=== PATIENT | male | born 1930 | race Caucasian/White ===

== ENCOUNTER → 2017-03-27 16:00 | Outpatient (CLI) | payer MEDICARE, OTHER ==
[2016-07-19 14:08] VITALS: BMI 27.3
[~2017-03-27 16:00] MED LIST: BAYER CHEWABLE81 MG PO; BENADRYL25 MG PO; CELEXA20 MG PO; COUMADIN; DIGOXIN; GLUCOPHAGE500 MG PO; HCTZ25 MG PO; HYDROCODON-ACE1 EAC7 PO; HYZAAR 100-12.51 TAB PO; KEFLEX500 MG PO; LANOXIN125 MCG PO; LASIX40 MG PO; LISINOPRIL/HCTZ; LOPID600 MG PO; METFORMIN; POTASSIUM CHLO20 MEQ PO; PRAVACHOL20 MG; PREDNISONE50 MG PO; ULTRAM50 MG PO; VITAMIN D; VITAMIN D31000 UNI2 PO; VOLTAREN75 MG PO
== END | disposition home or self-care (01) ==
LOC: D.CT 16:00
DX: M79.602 Pain in left arm (principal)

== ENCOUNTER 2017-05-24 06:42 | Emergency (ER) | payer MEDICARE, OTHER ==
[2016-07-19 14:08] VITALS: BMI 27.3
[2017-05-24 07:40] LABS: BASOPHILS 0.2 % (0-2); EOSINOPHILS 1.3 % (0-7); HEMATOCRIT 38.9 % (42.0-54.0); HEMOGLOBIN 12.4 g/dL (13.5-17.5); MCH 28.8 pg (26.0-34.0); MCHC 31.9 g/dL (31.0-37.0); MCV 90.5 fL (80.0-100.0); MEAN PLATELET VOLUME 10.3 fL (7.4-10.4); MONOCYTES 13.2 % (2-11); NEUTROPHILS 69.3 % (40-80); PLATELET COUNT 224 10x3/uL (130-400); RDW 15.5 % (11.5-14.5); WBC 8.8 10x3/uL (4.8-10.8)
[2017-05-24 07:53] LABS: APTT 38.1 SECONDS (22.8-39.4); INR 1.58 (0.85-1.17); PROTIME 18.8 SECONDS (11.6-15.0)
[2017-05-24 07:58] LABS: ALKALINE PHOSPHATASE 52 U/L (46-116); ALT (SGPT) 21 U/L (10-68); BILIRUBIN - TOTAL 0.74 mg/dL (0.2-1.3); CALC OSMOLALITY 282 mosm/kg (275-300); CALCIUM 8.9 mg/dL (8.5-10.1); CARBON DIOXIDE 30.4 mmol/L (21.0-32.0); CHLORIDE - SERUM 98 mmol/L (98-107); CREATININE - SERUM 1.4 mg/dL (0.6-1.3); GLUCOSE 153 mg/dL (74-106); PROTEIN - SERUM 7.3 g/dL (6.4-8.2); SODIUM 139 mmol/L (136-145); UREA NITROGEN 19 mg/dL (7-18); eGFR NON AFRICAN AMERICAN 51 mL/min (90-120)
[2017-05-24 08:11] LABS: CREATINE KINASE 115 UL (21-232); DIGOXIN 1.48 ng/mL (0.90-2.00); PRO BNP 1120 pg/mL (0-450); TROPONIN-I 0.044 ng/mL (0.000-0.060)
== END 2017-05-24 08:52 | disposition home or self-care (01) ==
LOC: D.ER 06:42
PROVIDERS: Family Medicine
DX: S00.01XA Abrasion of scalp, initial encounter (principal); W06.XXXA Fall from bed, initial encounter; Y93.84 Activity, sleeping; Y92.013 Bedroom of single-family (private) house as the place of occurrence of the external cause; S02.2XXA Fracture of nasal bones, initial encounter for closed fracture; E11.9 Type 2 diabetes mellitus without complications; Z95.0 Presence of cardiac pacemaker; I10 Essential (primary) hypertension

== ENCOUNTER 2017-06-11 11:09 | Outpatient (CLI) | payer MEDICARE, OTHER ==
[~2017-06-11] VITALS: Ht 172.7 cm; Wt 85.6 kg
--- NOTE | ~2017-06-11 | HEMODYNAMI ---
PATIENT:CHARLEE GARCIA MEDICAL RECORD: [id number] : 34 LOCATION:[facility] ADMISSION DATE: 06/11/17 Generatedon:06/11/201714:37 Patient name: CHARLEE GARCIA Patient #: [id number] SSN: D OB: 1930 Date of study: 06/11/2017 Page: Of Hemodynamic Procedure Report Patient Data Patient Demographics Procedure consent was obtained First Name: CHARLEE Gender: Male Last Name: RADHA : 1930 Patient #: [id number] Age: 86 year(s) Race: Unknown Additional ID: [id number] Contact details [address]: [address] [place] [address] [phone] State: [place] City: [place] Zip code: [address] Past Medical History Allergies Allergen Reaction Date Comments Reported Other allergy 06/11/2017 Iodine,Augmentin Admission Admission Data Admission Date: 06/11/2017 Admission Time: 11:09 Lab Results Lab Result Date: 06/11/2017 Lab Result Time: 11:58 Biochemistry Name Units Result Min Max BUN mg/dl 33 --(----)-* 7 18 Creatinine mg/dl 1.4 --(----)*- 0.6 1.3 CBC Name Units Result Min Max Hematocrit % 42.7 --(*---)-- 42 54 Hemoglobin g/dl 13.7 --(*---)-- 13.5 17.5 Coagulation Name Units Result Min Max INR units 1.09 --(---*)-- 0.85 1.17 PT sec 14 --(--*-)-- 11.6 15 Procedure Procedure Types Cath Procedure Diagnostic Procedure LHC Coronaries w/Grafts PCI Procedure Coronary Stent Initial Miscellaneous Procedures Moderate Sedation up to 45 minutes Procedure Description Procedure Date Procedure Date: 06/11/2017 Procedure Start Time: 14:01 Procedure End Time: 14:36 Procedure Staff Name Function Sid Monk MD Performing Physician Lia Andrews RT Scrub Keyla Martinez RN Nurse Taiwo Pedroza RN Digital Advertising Specialist Godwin Aguiar RT Monitor Procedure Data Cath Procedure Fluoroscopy Diagnostic fluoroscopy Total fluoroscopy Time: 8.4 time: 8.4 min min Diagnostic fluoroscopy Total fluoroscopy dose: 765 dose: 765 mGy mGy Contrast Material Contrast Material Type Amount (ml) Isovue 300 93 Entry Location Entry Primary Successful Side Size Upsize Upsize Entry Closure Succes sful Closure Location (Fr) 1 (Fr) 2 (Fr) Remarks Device Remarks Femoral Right 5 Fr 6 Fr Exoseal artery Short Estimated blood loss: 10 ml Diagnostic catheters Device Type Used For End Catheter Placement Cordis 5Fr JL 4.0 Procedure Catheter (MP) Diagnostic Infinity 5Fr Procedure AR MOD Catheter Diagnostic Infinity 5Fr Procedure IM catheter Cordis 5Fr Pigtail Catheter (MP) Diagnostic Infinity 5Fr Procedure Pigtail catheter Procedure Complications No complications Procedure Medications Medication Administration Route Dosage Oxygen NC 2 l/min Lidocaine 2% added to field 20 Heparin Flush Bag added to field 2 bags (1000units/500ml NS) 0.9% NaCl I.V. 100 ml Versed I.V. 1 mg Fentanyl I.V. 50 mcg Versed I.V. 1 mg Fentanyl I.V. 50 mcg Heparin Bolus I.V. 8000 units Plavix P.O. 600 mg Hemodynamics Rest Heart Rate: 65 (bpm) Snapshots Pre Cath Intra NCS Post Cath Vital Signs Time Heart Resp SPO2 etCO2 ND4ovkc NIBP (mmHg) Rhythm Pain Sedation Rate (ipm) (%) (mmHg) (mmHg) Status Level (bpm) 13:47:17 61 15 96 0 0 Measuring Paced 0 (11) 10(A) , No pain 13:49:49 58 20 98 0 0 163/95(146) Paced 0 (11) 10(A) , No pain 13:54:09 62 19 96 0 0 161/91(116) Paced 0 (11) 10(A) , No pain 13:58:27 60 16 98 0 0 163/93(135) Paced 0 (11) 10(A) , No pain 14:02:49 62 16 95 0 0 155/85(126) Paced 0 (11) 9(A) , No pain 14:07:05 63 15 97 0 0 141/81(95) Paced 0 (11) 9(A) , No pain 14:11:21 67 16 99 0 0 139/76(117) Paced 0 (11) 9(A) , No pain 14:15:39 65 14 99 0 0 121/59(106) Paced 0 (11) 9(A) , No pain 14:19:49 62 15 100 0 0 135/71(91) Paced 0 (11) 9(A) , No pain 14:24:05 60 15 99 0 0 126/70(102) Paced 0 (11) 9(A) , No pain 14:28:21 60 16 100 0 0 113/62(98) Paced 0 (11) 9(A) , No pain 14:32:31 60 16 100 0 0 133/62(101) Paced 0 (11) 10(A) , No pain 14:36:47 59 11 100 0 0 126/70(105) Paced 0 (11) 10(A) , No pain Medications Time Medication Route Dose Verified Delivered Reason Notes Effectiveness by by 13:44:59 Oxygen NC 2 Sid Buffie used for l/min Huy Martinez RN procedure 13:45:06 Lidocaine 2% added 20ml Sid Sid for local to vial Huy Monk MD anesthetic field 13:45:13 Heparin Flush added 2 Sid Sid used for Bag to bags Huy Monk MD procedure (1000units/500ml field NS) 13:45:22 0.9% NaCl I.V. 100 Sid Buffie Per physician ml Huy Martienz RN 14:00:38 Versed I.V. 1 mg Sid Buffie for sedation Huy Martinez RN 14:00:44 Fentanyl I.V. 50 Sid Buffie for sedation mcg Huy Martinez RN 14:16:44 Versed I.V. 1 mg Sid Buffie for sedation Huy Martinez RN 14:16:48 Fentanyl I.V. 50 Sid Buffie for sedation mcg Huy Martinez RN 14:23:04 Heparin Bolus I.V. 8000 Sid Buffie for verifi ed units Huy Martinez RN anticoagulation with dr monk 14:34:58 Plavix P.O. 600 Sid Buffie for mg Huy Martinez RN antiplatelet therapy Procedure Log Time Note 13:29:54 Taiwo Pedroza RN sent for patient. Start room use. 13:29:55 Time tracking: Regular hours 13:29:59 Plan of Care:Hemodynamics will remain stable., Cardiac rhythm will remain stable., Comfort level will be maintained., Respiratory function will remain adequate., Patient/ family verbilizes understanding of procedure., Procedure tolerated without complication., Recovers from procedure without complications.. 13:36:47 Patient received from Pre/Post Procedure Room to CCL 1 Alert and oriented. Tansferred to table in Supine position. 13:44:59 Oxygen 2 l/min NC was administered by Keyla Martinez RN; used for procedure; 13:45:06 Lidocaine 2% 20ml vial added to field was administered by Sid Monk MD; for local anesthetic; 13:45:13 Heparin Flush Bag (1000units/500ml NS) 2 bags added to field was administered by Sid Monk MD; used for procedure; 13:45:22 0.9% NaCl 100 ml I.V. was administered by Keyla Martinez RN; Per physician; 13:45:29 Vital chart was started 13:46:07 Warm blankets applied, and heidy hugger turned on for patient comfort. 13:46:07 Correct patient and procedure confirmed by team. 13:46:09 Signed procedure consent form obtained from spouse. 13:46:10 ECG and BP/O2 sat monitors applied to patient. 13:46:11 Full Disclosure recording started 13:52:42 H&P Date Dictated: 06/05/2017 Within 30 days and on chart., H&P Addendum completed by physician on day of procedure. (MUST COMPLETE FOR ALL OUTPATIENTS). 13:52:45 Pre-procedure instructions explained to patient. 13:52:45 Pre-op teaching completed and patient verbalized understanding. 13:52:47 Family in waiting room. 13:52:49 Patient NPO since Midnight. 13:53:23 Patient allergic to Other allergyIodine,Augmentin 13:53:26 Is the patient allergic to Iodine/contrast media? Yes. 13:53:27 Was the patient premedicated? Yes 13:54:24 Lab Result : Creatinine 1.4 mg/dl 13:54:24 Lab Result : BUN 33 mg/dl 13:54:24 Lab Result : PT 14 sec 13:54:24 Lab Result : INR 1.09 units 13:54:24 Lab Result : Hemoglobin 13.7 g/dl 13:54:24 Lab Result : Hematocrit 42.7 % 13:55:14 Is patient on blood thinner?Yes 13:55:20 ACC The patient was administered the following blood thiners within the last 24 hours: Coumadin 13:55:21 Patient diabetic? Yes. 13:55:23 If diabetic: On Metformin? Yes 13:55:27 If on Metformin: Last Dose? 06/09/2017 13:55:32 Previous problem with sedation/anesthesia? No ? 13:55:34 Snore? No 13:55:35 Sleep apnea? No 13:55:37 Deviated septum? No 13:55:38 Opens mouth fully? Yes 13:55:46 Sticks out tongue? Yes 13:55:48 Airway obstruction? No ? 13:55:50 Dentures? No ? 13:55:55 Pre procedure: right dorsailis pedis pulse Doppler 13:55:58 Patient pain scale 0/10 ?. 13:56:04 IV patent on arrival in left forearm with 0.9% NaCl at [facility]. 13:56:09 Lab results completed and on chart. 13:56:12 Right groin area was prepped with chlora-prep and draped in sterile fashion 13:56:13 Alarms reviewed by R. N. 13:56:13 Sharps counted by scrub and verified by R.N. 13:56:17 Use device set Femoral Dx 13:56:18 Tegaderm 4 x 4 opened to sterile field. 13:56:19 Acist Manifold opened to sterile field. 13:56:20 Acist Hand Control opened to sterile field. 13:56:21 Acist Syringe opened to sterile field. 13:56:22 Bag Decanter opened to sterile field. 13:56:28 Medline Cath Pack opened to sterile field. 13:56:30 Diagnostic Infinity 5Fr Multipack catheter opened to sterile field. 13:56:31 Terumo 5Fr Maurice Sheath opened to sterile field. 13:56:31 St Abe 260cm J .035 wire opened to sterile field. 13:56:39 Physician arrived 13:56:40 --------ALL STOP TIME OUT------ 13:56:40 Final Timeout: patient, procedure, and site verified with staff and physician. All members of the team are in agreement. 13:56:42 Right groin site verified by team. 13:56:44 Physical assessment completed. ASA score P 2 - A patient with mild systemic disease as per Sid Monk MD. 13:56:47 Sedation plan: IV Moderate Sedation Versed, Fentanyl 14:00:38 Versed 1 mg I.V. was administered by Keyla Martinez RN; for sedation; 14:00:44 Fentanyl 50 mcg I.V. was administered by Keyla Martinez RN; for sedation; 14:01:29 Procedure started. 14:01:35 Local anesthetic to right femoral artery with Lidocaine 2% by Sid Monk MD.INITIAL ACCESS ONLY 14:01:55 A 5 Fr sheath was inserted into the Right Femoral artery 14:02:19 Baseline sample Acquired. 14:02:36 Rhythm: paced 14:04:29 Zero performed for pressure channel P1 14:05:31 A Cordis 5Fr JL 4.0 Catheter (MP) was advanced over the wire and used for Procedure. 14:07:09 LCA angiography performed. 14:07:12 Catheter exchanged over wire. 14:07:35 A Diagnostic Infinity 5Fr AR MOD Catheter was advanced over the wire and used for Procedure. 14:08:22 RCA angiography performed. 14:09:54 SVG to Circ angiography performed. 14:10:34 Catheter exchanged over wire. 14:10:43 A Diagnostic Infinity 5Fr IM catheter was advanced over the wire and used for Procedure. 14:12:37 CRUZ to LAD angiography performed. 14:13:59 Catheter exchanged over wire. 14:14:18 A Cordis 5Fr Pigtail Catheter (MP) was advanced over the wire and used for . 14:14:29 Catheter removed. damaged. 14:14:35 A Diagnostic Infinity 5Fr Pigtail catheter was advanced over the wire and used for Procedure. 14:14:53 High Pressure Extension Tubing (Monk) opened to sterile field. 14:14:55 Merit BasixCompak Inflation Kit opened to sterile field. 14:16:44 Versed 1 mg I.V. was administered by Keyla Martinez RN; for sedation; 14:16:48 Fentanyl 50 mcg I.V. was administered by Keyla Martinez RN; for sedation; 14:19:24 Catheter removed. Unable to cross valve. 14:19:39 Reid BMW [place] 2 J-tip 300cm 0.014 guide wir opened to sterile field. 14:19:40 Medtronic Launcher 6Fr AR 1.0 guide catheter opened to sterile field. 14:19:52 Terumo 6Fr Maurice Sheath opened to sterile field. 14:20:07 Sheath upsized to a 6 Fr Short. 14:20:13 6 Fr AR 1 guide catheter was inserted over the wire 14:22:37 RCA angiography performed. 14:23:04 Heparin Bolus 8000 units I.V. was administered by Keyla Martinez RN; for anticoagulation; verified with dr monk 14:23:52 bmw wire advanced. 14:24:00 Wire advanced across lesion. 14:27:49 Inflation Number: 1 A MitraSpantronic Integrity 2.75 X 18 stent was prepped and advanced across the Prox RCA. The stent was deployed at 14 DUC for 0:10 (min:sec). 14:28:25 Stent catheter was removed intact over wire. 14:28:26 Wire removed. 14:28:27 Guide catheter removed. 14:28:57 Cordis 6Fr Exoseal opened to sterile field. 14:30:54 Sheath removed intact; hemostasis achieved with Exoseal to the Right Femoral artery. 14:30:56 Procedure ended.(Physican Out) 14:32:03 Fluoroscopy time 08.40 minutes. 14:32:07 Fluoroscopy dose: 765 mGy 14:32:07 Flurop Dose total: 765 14:32:11 Contrast amount:Isovue 300 93ml. 14:32:12 Sharps counted by scrub and verified by R.N. 14:32:13 Insertion/operative site no bleeding no hematoma. 14:32:17 Post-op/insertion site Right Femoral artery dressed using a 4 x 4 and Tegaderm. 14:32:24 Post right femoral artery:stable, soft, clean and dry 14:32:27 Post-procedure physical assessment completed. ASA score P 2 - A patient with mild systemic disease as per Sid Monk MD. 14:32:31 Post procedure rhythm: unchanged. 14:32:51 Estimated blood loss: 10 ml 14:32:52 Post procedure instruction explained to patient.Patient verbalizes understanding. 14:32:52 Patient needs reinforcement of post procedure teaching. 14:33:19 Procedure type changed to Cath procedure, Diagnostic procedure, LHC, Coronaries w/Grafts, PCI procedure, Coronary Stent Initial, Miscellaneous Procedures, Moderate Sedation up to 45 minutes 14:34:58 Plavix 600 mg P.O. was administered by Keyla Martinez RN; for antiplatelet therapy; 14:36:16 Procedure and supply charges have been captured, reviewed, submitted and are correct. 14:36:19 Procedure Complication : No complications 14:36:21 Vital chart was stopped 14:36:22 See physician's report for complete and final results. 14:36:23 Report given to PCU. 14:36:26 Patient transfered to PCU with Stretcher. 14:36:28 Procedure ended. 14:36:28 Full Disclosure recording stopped 14:36:57 End room use (Document Last) Intervention Summary Intervention Notes Time ActionType Lesion and Equipment Action# Pressure Duration Attributes Used 14:27:[address] Place stent Prox RCA Medtronic 1 14 00:10 Integrity 2.75 X 18 stent Device Usage Item Name Manufacture Quantity Catalog Hospital Part Current Minimal L ot# / Number Charge Number Stock Stock Serial# Code Tegaderm 4 3M 1 [id number] 198668 [id number] 5 x 4 Acist Acist 1 76495 620589 [id number] 148763 5 TransLattice Medical Systems [employer] Acist Hand Acist 1 22175 064083 093231 819907 5 [employer] Inc Acist Acist 1 61615 085507 249256 968672 20 Syringe Medical Systems [employer] Bag Microtek 1 2002S 379759 60218 169295 5 [employer] Inc. Medline Cardinal 1 [id number] 465459 91625 362810 5 Cath Pack Health Diagnostic Cardinal 1 [id number] 003383 67992 233611 30 Btiques 5Fr Multipack catheter Terumo 5Fr Terumo 1 [id number] 046537 818354 624570 [address] Abe St Abe 1 245945 035033 690417 895313 30 260cm J .035 wire Cordis 5Fr Cardinal 1 818312 5 JL 4.0 Health Catheter (MP) Diagnostic Cardinal 1 [id number] 364885 658238 098235 15 Btiques 5Fr AR MOD Catheter Diagnostic Cardinal 1 [id number] 569597 526008 387885 5 Btiques 5Fr IM catheter Cordis 5Fr Cardinal 1 056501 5 Pigtail Health Catheter (MP) Diagnostic Cardinal 1 [id number] 922982 638190 886857 5 Btiques 5Fr Pigtail catheter High Merit 1 [id number] 660613 07692 845374 10 Pressure Medical Extension Tubing (Monk) Merit Merit 1 [id number] 830057 354064 414264 15 BasixCompak Medical Inflation Kit Reid BMW Reid 1 [id number] 818859 078611 629213 5 [place] 2 Vascular J-tip 300cm 0.014 guide wir Medtronic Medtronic 1 [id number] 477813 59018 332861 1 Launcher 6Fr AR 1.0 guide catheter Terumo 6Fr Terumo 1 [id number] 362944 125827 689746 40 Maurice Sheath Medtronic Medtronic 1 [id number] 131841 887696 1 0 [id number] Integrity 2.75 X 18 stent Cordis 6Fr Cardinal 1 EX600 705992 625167 408429 10 [facility] Tripp[facility] Signature [place] Stage Time Signature Unsigned Intra-Procedure 06/11/2017 Godwin Aguiar 2:37:41 PM RT(R) Signatures Monitor : Godwin Aguiar RT Signature : Date : Time : [place] [id number] [place] [address]
--- NOTE | ~2017-06-11 | HEMODYNAMI ---
PATIENT:CHARLEE GARCIA MEDICAL RECORD: [id number] : 34 LOCATION:[facility] [address] [id number] ADMISSION DATE: 06/11/17 Generatedon:06/12/201710:36 Patient name: CHARLEE GARCIA Patient #: [id number] SSN: D OB: 1930 Date of study: 06/12/2017 Page: Of Hemodynamic Procedure Report Patient Data Patient Demographics Procedure consent was obtained First Name: CHARLEE Gender: Male Last Name: RADHA : 1930 Patient #: [id number] Age: 86 year(s) Race: Additional ID: [id number] Contact details [address]: [address] [place] [address] [address] State: [place] City: [place] Zip code: [address] Past Medical History Allergies Allergen Reaction Date Comments Reported Other allergy 06/11/2017 Iodine,Augmentin Other allergy 06/12/2017 Iodine, Augmentin Admission Admission Data Admission Date: 06/11/2017 Admission Time: 11:09 Room #: D.2129 Lab Results Lab Result Date: 06/11/2017 Lab Result Time: 11:58 Biochemistry Name Units Result Min Max BUN mg/dl 33 --(----)-* 7 18 Creatinine mg/dl 1.4 --(----)*- 0.6 1.3 CBC Name Units Result Min Max Hematocrit % 42.7 --(*---)-- 42 54 Hemoglobin g/dl 13.7 --(*---)-- 13.5 17.5 Coagulation Name Units Result Min Max INR units 1.09 --(---*)-- 0.85 1.17 PT sec 14 --(--*-)-- 11.6 15 Procedure Procedure Types Cath Procedure PCI Procedure SVG-BMS/AUREA Initial Procedure Description Procedure Date Procedure Date: 06/12/2017 Procedure Start Time: 9:18 Procedure End Time: 10:23 Procedure Staff Name Function Isaak SILVA Monitor Sid Monk MD Performing Physician Leticia Crowley RN Nurse Barbie Macedo RT Scrub Procedure Data Cath Procedure Fluoroscopy Diagnostic fluoroscopy Total fluoroscopy Time: 23 time: 23 min min Diagnostic fluoroscopy Total fluoroscopy dose: dose: 1994 mGy 1994 mGy Contrast Material Contrast Material Type Amount (ml) Isovue 300 139 Entry Location Entry Primary Successful Side Size Upsize Upsize Entry Closure Succes sful Closure Location (Fr) 1 (Fr) 2 (Fr) Remarks Device Remarks Femoral Left 6 Fr Exoseal artery Short Estimated blood loss: 10 ml Procedure Medications Medication Administration Route Dosage Plavix P.O. 75 mg Oxygen NC 2 l/min Heparin Flush Bag added to field 2 bags (1000units/500ml NS) Lidocaine 2% added to field 20 Versed I.V. 1 mg Fentanyl I.V. 50 mcg Versed I.V. 1 mg Fentanyl I.V. 50 mcg Fentanyl I.V. 25 mcg Heparin Bolus I.V. 7000 units Integrilin (Bolus I.V. 7.9 ml 2mg/ml) Cardene I.C. 150 mcg Hemodynamics Rest HGB: 13.7 (g/dl) Heart Rate: 61 (bpm) Snapshots Pre Cath Intra NCS Post Cath Vital Signs Time Heart Resp SPO2 NIBP (mmHg) Rhythm Pain Sedation Rate (ipm) (%) Status Level (bpm) 8:57:17 60 16 100 Measuring Paced 0 (11) 10(A) , No pain 8:57:31 60 16 100 168/93(143) Paced 0 (11) 10(A) , No pain 9:02:30 60 15 98 Measuring Paced 0 (11) 10(A) , No pain 9:02:47 59 15 98 169/94(153) Paced 0 (11) 10(A) , No pain 9:07:09 60 20 99 173/95(156) Paced 0 (11) 10(A) , No pain 9:11:31 59 16 99 170/98(146) Paced 0 (11) 10(A) , No pain 9:15:55 62 16 98 160/83(131) Paced 0 (11) 9(A) , No pain 9:20:15 60 15 100 160/86(142) Paced 0 (11) 9(A) , No pain 9:24:35 60 16 100 153/79(122) Paced 0 (11) 9(A) , No pain 9:28:54 60 16 100 152/79(122) Paced 0 (11) 9(A) , No pain 9:33:13 60 16 100 147/75(111) Paced 0 (11) 9(A) , No pain 9:37:32 60 16 100 141/74(113) Paced 0 (11) 9(A) , No pain 9:41:48 59 16 100 134/70(109) Paced 0 (11) 9(A) , No pain 9:46:06 63 18 100 122/63(101) Paced 0 (11) 9(A) , No pain 9:50:18 59 15 100 132/69(106) Paced 0 (11) 9(A) , No pain 9:54:34 60 15 100 135/67(105) Paced 0 (11) 9(A) , No pain 9:58:50 62 16 100 130/71(107) Paced 0 (11) 9(A) , No pain 10:03:04 59 15 100 137/72(113) Paced 0 (11) 9(A) , No pain 10:07:20 59 15 99 136/70(105) Paced 0 (11) 9(A) , No pain 10:11:36 59 15 99 135/68(101) Paced 0 (11) 9(A) , No pain 10:15:27 60 15 99 144/80(111) Paced 0 (11) 9(A) , No pain 10:19:45 60 10 99 138/75(111) Paced 0 (11) 9(A) , No pain 10:23:59 73 28 94 116/105(114) Paced 0 (11) 9(A) , No pain Medications Time Medication Route Dose Verified Delivered Reason Notes Effectiveness by by 8:49:03 Plavix P.O. 75 mg Sid Leticia used for Huy Crowley medical device assembler 8:50:12 Oxygen NC 2 Sid Leticia Per physician l/min Huy Crowley RN 8:56:24 Heparin Flush added 2 Sid Sid used for Bag to bags Huy Monk MD procedure (1000units/500ml field NS) 8:56:32 Lidocaine 2% added 20ml Sid Sid used for to vial Huy Monk MD procedure field 9:09:34 Versed I.V. 1 mg Isd Leticia for sedation Huy Crowley RN 9:09:41 Fentanyl I.V. 50 Sid Leticia for sedation mcg Huy Crowley RN 9:12:22 Versed I.V. 1 mg Sid Leticia for sedation Huy Crowley RN 9:12:24 Fentanyl I.V. 50 Sid Leticia for sedation mcg Huy Crowley RN 9:16:42 Fentanyl I.V. 25 Sid Leticia for sedation mcg Huy Crowley RN 9:35:42 Heparin Bolus I.V. 7000 Sid Leticia for dose units Huy Crowley RN anticoagulation verified wtih dr monk 9:37:39 Integrilin I.V. 7.9 Sid Leticia for dose (Bolus 2mg/ml) ml Huy Crowley RN antiplatelet confirmed therapy with dr monk, wasted 2.1ml 9:44:51 Cardene I.C. 150 Sid Sid for mcg Huy Monk MD vasodilation Procedure Log Time Note 7:58:46 Informed consent obtained and on chart 7:59:14 Diagnostic Cath Status : Elective 8:48:35 Isaak Cifuentes RT(R) (CV) sent for patient. Start room use. 8:48:36 Time tracking: Regular hours 8:48:43 Plan of Care:Hemodynamics will remain stable., Cardiac rhythm will remain stable., Comfort level will be maintained., Respiratory function will remain adequate., Patient/ family verbilizes understanding of procedure., Procedure tolerated without complication., Recovers from procedure without complications.. 8:48:54 Patient received from Med II to CCL 2 Alert and oriented. Tansferred to table in Supine position. 8:48:56 Warm blankets applied, and heidy hugger turned on for patient comfort. 8:48:57 Correct patient and procedure confirmed by team. 8:49:03 Plavix 75 mg P.O. was administered by Leticia Crowley RN; used for procedure; 8:50:06 Procedure type changed to Cath procedure, PCI procedure, SVG-BMS/AUREA Initial 8:50:12 Oxygen 2 l/min NC was administered by Leticia Crowley RN; Per physician; 8:55:26 ECG and BP/O2 sat monitors applied to patient. 8:55:28 Vital chart was started 8:55:30 Baseline sample Acquired. 8:55:33 Full Disclosure recording started 8:55:39 H&P Date Dictated: 06/12/2017 Within 30 days and on chart.. 8:55:44 Pre-op teaching completed and patient verbalized understanding. 8:55:46 Family in waiting room. 8:55:48 Patient NPO since Midnight. 8:56:10 Patient allergic to Other allergyIodine, Augmentin 8:56:15 Is the patient allergic to Iodine/contrast media? Yes. 8:56:17 Was the patient premedicated? Yes 8:56:18 Is patient on blood thinner?Yes 8:56:22 ACC The patient was administered the following blood thiners within the last 24 hours: ACCPlavix 8:56:24 Heparin Flush Bag (1000units/500ml NS) 2 bags added to field was administered by Sid Monk MD; used for procedure; 8:56:32 Lidocaine 2% 20ml vial added to field was administered by Sid Monk MD; used for procedure; 8:56:48 Patient diabetic? Yes. 8:56:57 If diabetic: On Metformin? Yes 8:57:04 If on Metformin: Last Dose? 06/10/2017 8:57:09 Snore? No 8:57:10 Sleep apnea? No 8:57:13 Deviated septum? No 8:57:14 Opens mouth fully? Yes 8:57:16 Sticks out tongue? Yes 8:57:20 Dentures? No ? 8:57:27 Patient pain scale 0/10 ?. 8:57:35 IV patent on arrival in left hand with 0.9% NaCl at KVO. 8:57:41 Lab results completed and on chart. 8:57:48 Left groin area was prepped with chlora-prep and draped in sterile fashion 8:57:49 Alarms reviewed by R. N. 8:57:50 Sharps counted by scrub and verified by R.N. 8:57:51 Physician paged 8:57:52 Physician arrived 9:00:57 Pre procedure: left dorsailis pedis pulse 1+ Palpable, but thready & weak; easily obliterated 9:02:07 Stanislav Pathakk Inflation Kit opened to sterile field. 9:02:08 Terumo 6Fr [place] Sheath opened to sterile field. 9:02:16 High Pressure Extension Tubing (Huy) opened to sterile field. 9:02:35 Use device set Femoral PCI 9:02:36 Acist Syringe opened to sterile field. 9:02:37 Acist Hand Control opened to sterile field. 9:02:38 Bag Decanter opened to sterile field. 9:02:39 Medline Cath Pack opened to sterile field. 9:02:41 St Abe 260cm J .035 wire opened to sterile field. 9:02:43 Acist Manifold opened to sterile field. 9:02:44 Tegaderm 4 x 4 opened to sterile field. 9:04:58 Rhythm: paced ::07 --------ALL STOP TIME OUT------ ::08 Final Timeout: patient, procedure, and site verified with staff and physician. All members of the team are in agreement. 9:09:11 Left groin site verified by team. 9:09:20 Physical assessment completed. ASA score P 2 - A patient with mild systemic disease as per Sid Monk MD. 9:09:24 Sedation plan: IV Moderate Sedation Versed, Fentanyl 9:09:34 Versed 1 mg I.V. was administered by Leticia Crowley RN; for sedation; 9:09:41 Fentanyl 50 mcg I.V. was administered by Leticia Crowley RN; for sedation; 9:12:22 Versed 1 mg I.V. was administered by Leticia Crowley RN; for sedation; 9:12:24 Fentanyl 50 mcg I.V. was administered by Leticia Crowley RN; for sedation; 9:12:37 Zero performed for pressure channel P1 9:14:01 IV Extension Set opened to sterile field. 9:16:42 Fentanyl 25 mcg I.V. was administered by Leticia Crowley RN; for sedation; 9:17:51 Medtronic Launcher 6Fr AR 1.0 guide catheter opened to sterile field. 9:18:13 [place] BioIQ Luge Straight 300cm 0.014 guide wire opened to sterile field. 9:18:40 Procedure started. 9:18:48 Local anesthetic to left femerol artery with Lidocaine 2% by Sid Monk MD.INITIAL ACCESS ONLY 9:33:26 Micropuncture VSI 4FR kit opened to sterile field. 9:33:51 MICRO PUNCTURE USED FOR ACCESS 9:34:02 A 6 Fr Short sheath was inserted into the Left Femoral artery 9:34:37 6 Fr AR 1 guide catheter was inserted over the wire 9:35:42 Heparin Bolus 7000 units I.V. was administered by Leticia Crowley RN; for anticoagulation; dose verified wtih dr monk 9:36:21 Study PCI Site: Vein G[facility] has 95% stenosis. 9:37:39 Integrilin (Bolus 2mg/ml) 7.9 ml I.V. was administered by Leticia Crowley RN; for antiplatelet therapy; dose confirmed with dr monk, wasted 2.1ml 9:38:04 LUGE wire advanced. 9:40:09 Wire removed. unable to cannulate vessel. 9:40:41 Reid Whisper J 300cm 0.014 guide wire opened to sterile field. 9:44:15 Wire removed. unable to cannulate vessel. 9:44:51 Cardene 150 mcg I.C. was administered by Sid Monk MD; for vasodilation; 9:47:40 Reid Fielder XT J 300cm 0.014 guide wire opened to sterile field. 9:47:54 FIELDER wire advanced. 9:50:14 Wire advanced across lesion. 9:52:38 Inflation Number: 1 A Medtronic Sprinter 1.5 x 12 balloon was prepped and advanced across the Mid CX. The stent was deployed at 10 DUC for 0:10 (min:sec). 9:56:51 Wire removed. 9:57:04 LUGE wire advanced. 9:59:20 Inflation number: 2 The stent balloon was then re-inflated across the Mid CX to 12 DUC for 0:10 (min:sec). 10:00:00 Balloon removed over the wire. 10:02:46 Inflation number: 3 A Medtronic Sprinter 2.5 x 15 balloon was prepped and advanced across the Mid CX, then inflated to 10 DUC for 0:10 (min:sec). 10:03:57 Balloon removed over the wire. 10:07:40 Inflation Number: 4 A Medtronic Integrity 3.5 X 15 stent was prepped and advanced across the Mid CX. The stent was deployed at 10 DUC for 0:10 (min:sec). 10:07:46 Stent catheter was removed intact over wire. 10:12:25 Inflation Number: 1 A Medtronic Integrity 3.5 X 15 stent was prepped and advanced across the Prox CX. The stent was deployed at 12 DUC for 0:10 (min:sec). 10:12:36 Stent catheter was removed intact over wire. 10:12:43 Wire removed. 10:12:44 Guide catheter removed. 10:12:54 Cordis 6Fr Exoseal opened to sterile field. 10:13:29 Sheath removed intact; hemostasis achieved with Exoseal to the Left Femoral artery. 10:13:33 Procedure ended.(Physican Out) 10:13:43 Fluoroscopy time 23.00 minutes. 10::52 Fluoroscopy dose: 1994 mGy 10::52 Flurop Dose total: 1994 10:14:31 Contrast amount:Isovue 300 139ml. 10:14:33 Sharps counted by scrub and verified by R.N. 10:17:54 Post Procedure Pulses reassessed and unchanged 10:18:13 Post-procedure physical assessment completed. ASA score P 2 - A patient with mild systemic disease as per Sid Monk MD. 10:20:39 Insertion/operative site no bleeding no hematoma. 10:20:46 Post-op/insertion site Left Femoral artery dressed using a 4 x 4 and Tegaderm. 10:22:37 Post left femerol artery:stable 10:23:10 Post procedure rhythm: unchanged. 10:23:15 Estimated blood loss: 10 ml 10:23:18 Post procedure instruction explained to patient.Patient verbalizes understanding. 10:23:20 Patient needs reinforcement of post procedure teaching. 10:23:21 Procedure and supply charges have been captured, reviewed, submitted and are correct. 10:23:23 See physician's report for complete and final results. 10:23:23 Vital chart was stopped 10:23:25 Report given to [facility]. 10:23:31 Patient transfered to [facility] with Bed. 10:23:36 Full Disclosure recording stopped 10:23:36 Procedure ended. 10:23:47 End room use (Document Last) Intervention Summary Intervention Notes Time ActionType Lesion and Equipment Action# Pressure Duration Attributes Used 9:52:38 Place stent Mid CX Medtronic 1 10 00:10 Sprinter 1.5 x 12 balloon 9:59:20 Reinflate Mid CX Medtronic 2 12 00:10 stent Sprinter balloon 1.5 x 12 balloon 10:02:46 Inflate Mid CX Medtronic 3 10 00:10 balloon Sprinter 2.5 x 15 balloon 10:07:40 Place stent Mid CX Medtronic 4 10 00:10 Integrity 3.5 X 15 stent 10:12:25 Place stent Prox CX Medtronic 1 12 00:10 Integrity 3.5 X 15 stent Device Usage Item Name Manufacture Quantity Catalog Hospital Part Current Mini [facility] Lot# / Number Charge Number Stock Stock Serial# Code Merit Merit 1 [id number] 554062 937330 15 [employer] Medical Inflation Kit Terumo 6Fr Terumo 1 [id number] 713836 036455 948853 40 [place] Sheath High Pressure Merit 1 [id number] 239603 00622 062092 10 Extension Medical Tubing (Monk) Acist Syringe Acist 1 67274 568625 069700 984328 20 Medical Systems Inc Acist Hand Acist 1 87732 809361 560246 295627 5 Control Medical Systems Inc Bag Decanter Microtek 1 2002S 580316 24142 423358 5 Medical Inc. Medline Cath Cardinal 1 [id number] 518289 34022 886260 [address] [facility] [address] Abe [address] St Abe 1 508963 560074 040054 390263 30 J .035 wire Acist Acist 1 24537 322025 236285 202383 5 NimbusBase Medical Systems Inc Tegaderm 4 x 3M 1 1626W 032473 472629 225626 5 4 IV Extension Hospira 1 01446-65 005895 97847 549670 5 Set Medtronic Medtronic 1 [id number] 367842 30794 518579 1 Launcher 6Fr AR 1.0 guide catheter [place] Sci [place] 1 [id number] 027298 653642 006218 5 Luge [employer] 300cm 0.014 guide wire Micropuncture VSI VASCULAR 1 7266V 458558 231390 5 VSI 4FR kit SOLUTIONS Reid Reid 1 [id number] 721874 428122 735436 5 Whisper J Vascular 300cm 0.014 guide wire Reid Reid 1 [id number] 950386 526559 848290 5 Fielder XT J Vascular 300cm 0.014 guide wire Medtronic Medtronic 1 [id number] 014561 145722 5 Sprinter 1.5 x 12 balloon Medtronic Medtronic 1 [id number] 908674 493506 5 Sprinter 2.5 x 15 balloon Medtronic Medtronic 2 [id number] 162572 992913 1 Integrity 3.5 X 15 stent Cordis 6Fr Cardinal 1 EX600 748677 380003 919230 10 [facility] Mydish Signature Audit [place] Stage Time Signature Unsigned Intra-Procedure 06/12/2017 Isaak Cifuentes RT(R) 10:24:27 AM RT(R) (CV) (CV) 06/12/2017 10:34:54 AM Intra-Procedure 06/12/2017 Isaak Cifuentes 10:36:09 AM RT(R) (CV) Signatures Monitor : Isaak Cifuentes RT Signature : Date : Time : [place] [place] [address]
[2017-06-11] MEDS ORDERED: K-TAB10 MEQ PO (11:52)
[2017-06-11] MEDS ORDERED: GLIPIZIDE10 MG PO (11:53)
[2017-06-11] MEDS ORDERED: REQUIP XL2 MG PO (11:55)
[2017-06-11] MEDS ORDERED: BAYER CHEWABLE81 MG PO (11:55)
[2017-06-11] MEDS ORDERED: NEURONTIN 300300 MG PO (11:56)
[2017-06-11] MEDS ORDERED: FLOMAX0.4 MG PO (11:57)
[2017-06-11] MEDS ORDERED: BUMEX2 MG PO (11:59)
[2017-06-11] MEDS ORDERED: COUMADIN5 MG PO (12:00)
[2017-06-11] MEDS ORDERED: PREDNISONE20 MG PO (12:02)
[2017-06-11 12:11] VITALS: BP 139/62; BMI 25.9
[2017-06-11 12:11] LABS: BASOPHILS 0.1 % (0-2); EOSINOPHILS 0 % (0-7); HEMATOCRIT 42.7 % (42.0-54.0); HEMOGLOBIN 13.7 g/dL (13.5-17.5); IMMATURE GRANULOCYTES 0.7 % (0-5); LYMPHOCYTES 14.1 % (15-50); MCH 28.7 pg (26.0-34.0); MCHC 32.1 g/dL (31.0-37.0); MCV 89.5 fL (80.0-100.0); MEAN PLATELET VOLUME 10.8 fL (7.4-10.4); MONOCYTES 11.7 % (2-11); NEUTROPHILS 73.4 % (40-80); RBC 4.77 10x6/uL (4.20-6.10); WBC 19.2 10x3/uL (4.8-10.8)
[2017-06-11 12:14] LABS: PLATELET COUNT 350 10x3/uL (130-400)
[2017-06-11 12:19] LABS: INR 1.09 (0.85-1.17)
[2017-06-11 12:29] LABS: ANION GAP 11.7 mmol/L (8-16); CALCIUM 9.2 mg/dL (8.5-10.1); CARBON DIOXIDE 36.3 mmol/L (21.0-32.0); CREATININE - SERUM 1.4 mg/dL (0.6-1.3)
--- NOTE | 2017-06-11 15:15 | NUR ---
RECEIVED PT TO ROOM 2129, VIA BED, VITAL SIGNS STABLE, NO BLEEDING OR HEMATOMA NOTED TO RT GROIN AREA. 20G IV NOTED TO LT HAND. STARTED INFUSING NS AT 100CC/HR. GAVE INSTRUCTIONS TO PT TO LAY FLAT FOR FOUR HOURS. PT DENIES ANY NEEDS AT THIS TIME. WILL START PLAN OF CARE.
[2017-06-11 15:59] VITALS: Ht 172.7 cm; Wt 85.6 kg
--- NOTE | 2017-06-11 19:46 | NUR ---
RECEIVED REPORT, WILL ASSUME CARE OF PT, R. GROIN DRESSING DRY/CLEAN/INTACT, PT ABLE TO SIT UP NOW AFTER CATH, DENIES ANY NEEDS, BED IS LOW, SRX2, WILL CONTINUE PLAN OF CARE
[2017-06-11 20:59] VITALS: BP 125/56
--- NOTE | 2017-06-12 00:14 | NUR ---
ASSESSMENT COMPLETE, SEE FLOWSHEET, PT SITTING ON SIDE OF BED, DENIES ANY NEEDS, BED IS LOW, SRX2, CALL LIGHT IN REACH, WILL CONTINUE PLAN OF CARE
[2017-06-12 01:20] VITALS: BP 148/69
--- NOTE | 2017-06-12 03:50 | NUR ---
RECIEVED REPORT FROM GUERDA SNELL @ 1165, CHECKED IN ON PATIENT. SLEEPING ATT, RR EVEN AND UNLABORED. ON TELELMETRY AND SHOWING PACED @ 80. BED LOW AND LOCKED, CALL LIGHT IN REACH. WILL CPOC.
[2017-06-12 05:04] VITALS: BP 145/79
[2017-06-12 06:46] LABS: ANION GAP 13.3 mmol/L (8-16); CALCIUM 8.5 mg/dL (8.5-10.1); CARBON DIOXIDE 32.7 mmol/L (21.0-32.0); CREATININE - SERUM 1.5 mg/dL (0.6-1.3)
--- NOTE | 2017-06-12 07:00 | NUR ---
RECEIVED REPORT. ASSUMED CARE OF PATIENT. CALL LIGHT WITHIN REACH.RESTING WITH EYES CLOSED. EASILY AROUSED. PERIPHERAL PULSES +2. DRESSING TO RIGHT GROIN C,D,I. BRUISING NOTED TO SUPRAPUBIC AND GROIN AREA. DENIES NEEDS. NO DISTRESS.
--- NOTE | 2017-06-12 07:31 | NUR ---
SOLUMEDROL ADMINISTERED AT THIS TIME PER . PATIENT ALERT/ORIENTED INQUIRING WHAT TIME HE WILL GO TO THE ROTOR BLADE INSTALLER. IV PATENT TO LEFT HAND. NO DISTRESS.
--- NOTE | 2017-06-12 07:52 | NUR ---
PATIENT ADMINISTERED PREOP MEDICATION AT THIS TIME. NO DISTRESS.
--- NOTE | 2017-06-12 08:30 | NUR ---
PATIENT LEFT UNIT VIA BED FOR TELECASTING TECHNICIAN WITH TWO ATTENDANTS. NO DISTRESS UPON LEAVING UNIT.
--- NOTE | 2017-06-12 10:38 | NUR ---
REPORT CALLED ON PATIENT FROM COLLEGE OR UNIVERSITY FACULTY MEMBER. PATIENT BACK TO UNIT SOON.
--- NOTE | 2017-06-12 10:55 | NUR ---
RECEIVED PATIENT BACK FROM COAT AGENT AT THIS TIME. PERIPHERAL PULSES PATENT. IV FLUIDS INFUSING ORDERED. BLOOD NOTED TO GAUZE, MARKED. VITALS STABLE. 146/74. NO DISTRESS. ALERT/ORIENTED. CONVERSING WITH FAMILY AT BEDSIDE.
--- NOTE | 2017-06-12 11:40 | NUR ---
FEMOSTOP APPLIED TO LEFT GROIN AT THIS TIME PATIENT NOTED TO HAVE BLOOD SOAKED GAUZE NOW, MORE THAN WHEN RETURNING FROM GRAIN PACKER. VITALS REMAIN STABLE. 145/71. ALERT/ORIENTED. INSERTION SITE VISIBLE THROUGH FEMOSTOP. PERIPHERAL PULSES PATENT. IV FLUIDS INFUSING ORDERED. NO ACUTE DISTRESS.
--- NOTE | 2017-06-12 12:27 | NUR ---
BLOOD NOTED TO BE SEEPING AT EDGES OF FEMOSTOP. DIAGRAMMER CALLED AND AWAITING DIAGRAMMER RN TO COME AND ASSESS.
--- NOTE | 2017-06-12 12:37 | NUR ---
MIKHAIL FROM GENERAL ENGINEER TO ROOM AND ADJUSTED FEMOSTOP. INFORMED PATIENT ALSO HAD SMALL SKINTEAR THAT IS SEEPING. 4X4 TO SKIN TEAR AREA. MIKHAIL SPOKE WITH FAMILY AND STATED HE WILL RETURN TO THE UNIT TO RECHECK AREA. HEMATOMA STABLE TO LEFT THIGH. AREA MARKED. BP 133/69. CALL LIGHT WITHIN REACH.
--- NOTE | 2017-06-12 14:18 | NUR ---
FEMOSTOP REMAINS TO LEFT FEMORAL. NO BLOOD SEEPING FROM INSERTION SITE, GAUZE AT EDGES OF FEMOSTOP WITH BLOOD. BP REMAINS STABLE. PATIENT STATES HE FEELS FINE. FAMILY REMAINS AT BEDSIDE. NO DISTRESS.
[2017-06-12] MEDS ORDERED: PLAVIX75 MG PO (14:22)
--- NOTE | 2017-06-12 15:30 | NUR ---
FEMSTOP REMOVED. NO BLEEDING FROM SITE. PRESSURE DRESSING TO SITE FOR PRECAUTIONS. SKIN IRRITATION NOTED TO LEFT GROIN THAT WAS CAUSED BY PATIENTS PERSONAL USE OF BRIEFS. NO DISTRESS. REMAINS AT BEDSIDE.
--- NOTE | 2017-06-12 17:51 | NUR ---
1730 20 GAUGE IV REMOVED FROM LEFT HAND. CATHETER TIP INTACT. NO BLEEDING FROM SITE. 2X2 GAUZE APPLIED AND SECURED WITH TAPE. 1735 DISCHARGE INSTRUCTIONS PROVIDED TO PATIENT AND HIS . VERBALIZED UNDERSTANDING OF ALL INSTRUCTIONS PROVIDED. ASSISTED PATIENT WITH GETTING DRESSED. 1745 PATIENT LEFT UNIT VIA WHEELCHAIR WITH ALL PERSONAL BELONGINGS. PATIENT DISCHARGED TO HOME VIA PERSONAL CAR WITH HIS . NO DISTRESS UPON LEAVING UNIT.
== END 2017-06-12 17:45 | disposition home or self-care (01) ==
LOC: D.M2 11:09 → D.CATH 11:09 → D.M2 15:14 → D.CATH 06-12 17:45
PROVIDERS: Internal Medicine Cardiovascular Disease
DX: I25.119 Atherosclerotic heart disease of native coronary artery with unspecified angina pectoris (principal); I25.719 Atherosclerosis of autologous vein coronary artery bypass graft(s) with unspecified angina pectoris; I48.91 Unspecified atrial fibrillation; Z95.0 Presence of cardiac pacemaker; Z79.84 Long term (current) use of oral hypoglycemic drugs; Z79.82 Long term (current) use of aspirin; Z79.01 Long term (current) use of anticoagulants; Z79.52 Long term (current) use of systemic steroids; Z79.899 Other long term (current) drug therapy; Z01.812 Encounter for preprocedural laboratory examination

== ENCOUNTER → 2017-07-02 10:28 | Outpatient (CLI) | payer MEDICARE, OTHER ==
[2017-06-11 15:59] VITALS: BMI 27.4
[~2017-07-02 10:28] MED LIST changes: +BUMEX2 MG PO; +COUMADIN5 MG PO; +FLOMAX0.4 MG PO; +GLIPIZIDE10 MG PO; +K-TAB10 MEQ PO; +NEURONTIN 300300 MG PO; +PLAVIX75 MG PO; +PREDNISONE20 MG PO; +REQUIP XL2 MG PO
== END | disposition home or self-care (01) ==
LOC: D.CT 10:28
DX: I73.9 Peripheral vascular disease, unspecified (principal)

== ENCOUNTER 2017-08-08 06:31 | Outpatient (CLI) | payer MEDICARE, OTHER ==
--- NOTE | ~2017-08-08 | HEMODYNAMI ---
PATIENT:CHARLEE GARCIA MEDICAL RECORD: [id number] : 34 LOCATION:[facility] ADMISSION DATE: 08/08/17 Generatedon:08/08/20179:41 Patient name: CHARLEE GARCIA Patient #: [id number] SSN: D OB: 1930 Date of study: 08/08/2017 Page: Of Hemodynamic Procedure Report Patient Data Patient Demographics Procedure consent was obtained First Name: CHARLEE Gender: Male Last Name: RADHA : 1930 Patient #: [id number] Age: 86 year(s) Race: Additional ID: [id number] Contact details [address]: [address] [place] [address] DRIVE State: [place] City: [place] Zip code: [address] Past Medical History Allergies Allergen Reaction Date Comments Reported Other allergy 06/11/2017 Iodine,Augmentin Other allergy 06/12/2017 Iodine, Augmentin Admission Admission Data Admission Date: 08/08/2017 Admission Time: 6:31 Procedure Procedure Types Cath Procedure Peripheral Cath Diagnostic Procedure Miscellaneous Procedure Description Procedure Date Procedure Date: 08/08/2017 Procedure Start Time: 9:17 Procedure Staff Name Function Ritchie Mills MD Performing Physician Kristin Menezes RT Scrub Barb Hma RN Nurse Melo Marcano RT Monitor Procedure Data Cath Procedure Fluoroscopy Diagnostic fluoroscopy Total fluoroscopy Time: 0.5 time: 0.5 min min Diagnostic fluoroscopy Total fluoroscopy dose: 88 dose: 88 mGy mGy Contrast Material Contrast Material Type Amount (ml) Isovue 300 13 Entry Location Entry Primary Successful Side Size Upsize Upsize Entry Closure Succes sful Closure Location (Fr) 1 (Fr) 2 (Fr) Remarks Device Remarks Femoral Left 5 Fr vein Procedure Medications Medication Administration Route Dosage Versed I.V. 1 mg Fentanyl I.V. 50 mcg Hemodynamics Rest Heart Rate: 67 (bpm) Snapshots Pre Cath Intra NCS Post Cath Vital Signs Time Heart Resp SPO2 NIBP (mmHg) Rhythm Pain Sedation Rate (ipm) (%) Status Level (bpm) 8:51:35 99 146/64(122) NSR 0 (11) 10(A) , No pain 8:56:05 73 46 100 78/53(60) NSR 0 (11) 10(A) , No pain 9:01:02 60 34 100 134/75(126) NSR 0 (11) 10(A) , No pain 9:05:18 67 45 100 155/85(122) NSR 0 (11) 10(A) , No pain 9:09:43 62 59 100 150/78(120) NSR 0 (11) 10(A) , No pain 9:14:03 70 39 100 145/88(131) NSR 0 (11) 10(A) , No pain 9:18:23 64 46 100 154/81(118) NSR 0 (11) 10(A) , No pain 9:22:45 66 14 95 150/76(112) NSR 0 (11) 10(A) , No pain 9:27:07 66 14 94 139/69(108) NSR 0 (11) 10(A) , No pain 9:32:07 64 36 96 138/68(103) NSR 0 (11) 10(A) , No pain 9:36:24 64 14 96 139/64(103) NSR 0 (11) 10(A) , No pain Medications Time Medication Route Dose Verified Delivered Reason Notes Effectiveness by by 9:19:19 Versed I.V. 1 mg Ritchie Ham RN, MD 9:19:33 Fentanyl I.V. 50 Ritchie Ham RN, MD Procedure Log Time Note 8:45:18 Time tracking: Regular hours 8:45:32 Plan of Care:Hemodynamics will remain stable., Cardiac rhythm will remain stable., Comfort level will be maintained., Respiratory function will remain adequate., Patient/ family verbilizes understanding of procedure., Procedure tolerated without complication., Recovers from procedure without complications.. 8:45:38 Patient received from Outpatients to IR Alert and oriented. Tansferred to table in Supine position. 8:45:39 Correct patient and procedure confirmed by team. 8:45:42 Signed procedure consent form obtained from patient. 8:45:43 ECG and BP/O2 sat monitors applied to patient. 8:45:43 Full Disclosure recording started 8:45:44 8:45:47 H&P Date Dictated: 08/08/2017 H&P Addendum completed by physician on day of procedure. (MUST COMPLETE FOR ALL OUTPATIENTS). 8:45:48 Pre-procedure instructions explained to patient. 8:45:48 Pre-op teaching completed and patient verbalized understanding. 8:45:49 Family in waiting room. 8:45:51 Patient NPO since Midnight. 8:50:16 Vital chart was started 8:50:52 Baseline sample Acquired. 8:51:31 Is the patient allergic to Iodine/contrast media? Yes. 8:51:32 Was the patient premedicated? Yes 8:51:36 Use device set IR Diagnostic 8:51:37 Bag Decanter opened to sterile field. 8:51:38 Sterile Angiographic Pack opened to sterile field. 8:51:47 Patient diabetic? No. 8:51:48 8:51:48 ----Pre-sedation anethsthesia assessment.---- 8:51:54 Previous problem with sedation/anesthesia? No ? 8:51:56 Snore? No 8:51:57 Sleep apnea? No 8:51:58 Deviated septum? No 8:51:59 Opens mouth fully? Yes 8:52:01 Sticks out tongue? Yes 8:52:06 Airway obstruction? No ? 8:52:08 Dentures? No ? 8:52:20 Patient pain scale 0/10 no apin. 8:52:48 IV patent on arrival in left forearm with 0.9% NaCl at [facility]. 8:52:52 Sharps counted by scrub and verified by R.N. 8:52:52 Alarms reviewed by R. N. 8:53:02 Bilateral groins area was prepped with chlora-prep and draped in sterile fashion 8:54:57 Baseline sample Acquired. 9:16:09 Physician arrived 9:16:09 --------ALL STOP TIME OUT------ 9:16:10 Final Timeout: patient, procedure, and site verified with staff and physician. All members of the team are in agreement. 9:16:14 Bilateral groins site verified by team. 9:16:38 Physical assessment completed. ASA score P 2 - A patient with mild systemic disease as per Ritchie Mills MD. 9:16:43 Sedation plan: IV Moderate Sedation Versed, Fentanyl 9:17:06 Procedure started. 9:17:18 Local anesthetic to left femoral vein with Lidocaine 1% by Ritchie Mills MD.INITIAL ACCESS ONLY 9:17:29 A 5 Fr sheath was inserted into the Left Femoral vein 9:19:19 Versed 1 mg I.V. was administered by Barb Ham RN; ; 9:19:33 Fentanyl 50 mcg I.V. was administered by Barb Ham RN; ; 9:32:50 Procedure ended.(Physican Out) 9:36:52 Fluoroscopy time 00.50 minutes. 9:36:57 Fluoroscopy dose: 88 mGy 9:36:57 Flurop Dose total: 88 9:37:03 Contrast amount:Isovue 300 13ml. 9:37:05 Sharps counted by scrub and verified by R.N. 9:37:08 Insertion/operative site no bleeding no hematoma. 9:37:13 Post-op/insertion site Left Femoral vein dressed using a 4 x 4 and Tegaderm. 9:37:35 Post left femoral vein:stable 9:37:36 Post Procedure Pulses reassessed and unchanged 9:37:54 Post-procedure physical assessment completed. ASA score P 2 - A patient with mild systemic disease as per Ritchie Mills MD. 9:38:01 Post procedure rhythm: unchanged. 9:38:03 Post procedure instruction explained to patient.Patient verbalizes understanding. 9:38:04 Procedure and supply charges have been captured, reviewed, submitted and are correct. 9:38:21 Micropuncture VSI 4FR kit opened to sterile field. 9:38:21 TUBING, CONTRAST INJCTN HI PRES opened to sterile field. 9:38:21 Cordis 5Fr BRITE TIP 11cm sheath opened to sterile field. 9:40:16 Report given to Outpatients. 9:40:22 Patient transfered to Outpatients with Stretcher. 9:41:17 Vital chart was stopped Device Usage Item Name Manufacture Quantity Catalog Hospital Part Current Minima l Lot# / Number Charge Number Stock Stock Serial# Code Bag Decanter Microtek 1 [id number] [id number] [id number] 5 Medical Inc. Sterile Cardinal 1 [id number] [id number] 581943 5 Angiographic Health Pack Micropuncture VSI VASCULAR 1 [id number] 494889 563589 5 VSI 4FR kit SOLUTIONS TUBING, Merit 1 [id number] 102290 916846 996488 5 CONTRAST Medical INJCTN HI PRES Cordis 5Fr Cardinal 1 [id number] 457999 932073 5 BRITE TIP Health 11cm sheath Signature Audit [place] Stage Time Signature Unsigned Intra-Procedure 08/08/2017 Melo 9:41:13 AM Jeet RT (R) (CV) Signatures Monitor : Melo Signature : Jeet RT Date : Time : [address] [id number]
[2017-08-08 07:31] VITALS: BMI 27.4
[2017-08-08 08:06] LABS: BASOPHILS 0.3 % (0-2); EOSINOPHILS 0.6 % (0-7); HEMATOCRIT 38.3 % (42.0-54.0); HEMOGLOBIN 12.4 g/dL (13.5-17.5); IMMATURE GRANULOCYTES 0.9 % (0-5); LYMPHOCYTES 15.8 % (15-50); MCH 28.8 pg (26.0-34.0); MCHC 32.4 g/dL (31.0-37.0); MCV 88.9 fL (80.0-100.0); MEAN PLATELET VOLUME 10.6 fL (7.4-10.4); NEUTROPHILS 68.4 % (40-80); RBC 4.31 10x6/uL (4.20-6.10); RDW 15.4 % (11.5-14.5); WBC 10.4 10x3/uL (4.8-10.8)
[2017-08-08 08:25] LABS: APTT 42.7 SECONDS (22.8-39.4); INR 1.97 (0.85-1.17); PROTIME 22.4 SECONDS (11.6-15.0)
[2017-08-08 08:28] LABS: PLATELET COUNT 268 10x3/uL (130-400)
[2017-08-08 08:32] LABS: ANION GAP 9.6 mmol/L (8-16); CALCIUM 9.3 mg/dL (8.5-10.1); CARBON DIOXIDE 34.2 mmol/L (21.0-32.0); CREATININE - SERUM 1.4 mg/dL (0.6-1.3); POTASSIUM - SERUM 3.8 mmol/L (3.5-5.1)
--- NOTE | 2017-08-08 15:34 | NUR ---
1000--ALL VITAL SIGNS CHARTED ON POST PROCEDURE VITAL SIGN SHEET ON CHART. KEYA LANDA
--- NOTE | 2017-08-08 15:36 | NUR ---
1238--PT TAKEN TO ULTRA SOUND VIA WC. KEYA LANDA 1320--PT BACK FROM US, IV DC'D. PT UP TO DRESS AT THIS TIME. KEYA LANDA 1350--HARRY WITH US CALLS ROOM TO SPEAK WITH PT AND FAMILY, HARRY TO COME TAKE PT TO ULTRA SOUND. KEYA LANDA 1445--PTBACK FROM ULTRASOUND, WOUND ON LEG REDRESSED. PT TOLERATED IT WELL. KEYA LANDA 1500--DISCHARGE INSTRUCTIONS GIVEN, PT VERBALIZES UNDERSTANDING. PT OFF UNIT VIA WC. KEYA LANDA
== END 2017-08-08 15:00 | disposition home or self-care (01) ==
LOC: D.OPS 06:31
PROVIDERS: Radiology Diagnostic Radiology
DX: I83.209 Varicose veins of unspecified lower extremity with both ulcer of unspecified site and inflammation (principal); I10 Essential (primary) hypertension; E78.5 Hyperlipidemia, unspecified; I70.203 Unspecified atherosclerosis of native arteries of extremities, bilateral legs; I24.0 Acute coronary thrombosis not resulting in myocardial infarction; Z01.812 Encounter for preprocedural laboratory examination

== ENCOUNTER 2017-09-10 07:30 | Outpatient (CLI) | payer MEDICARE, OTHER ==
--- NOTE | ~2017-09-10 | HEMODYNAMI ---
PATIENT:CHARLEE GARCIA MEDICAL RECORD: [id number] : 34 LOCATION:[facility] ADMISSION DATE: 09/10/17 Generatedon:09/10/201712:05 Patient name: CHARLEE GARCIA Patient #: [id number] SSN: D OB: 1930 Date of study: 09/10/2017 Page: Of Hemodynamic Procedure Report Patient Data Patient Demographics Procedure consent was obtained First Name: CHARLEE Gender: Male Last Name: RADHA : 1930 Patient #: [id number] Age: 86 year(s) Race: Additional ID: [id number] Contact details Address: [address] [place] [address] [address]IVE State: [place] City: [place] Zip code: [address] Past Medical History Allergies Allergen Reaction Date Comments Reported Other allergy 06/11/2017 Iodine,Augmentin Other allergy 06/12/2017 Iodine, Augmentin Iodine 09/10/2017 Admission Admission Data Admission Date: 09/10/2017 Admission Time: 7:30 Weight (lbs.): 170 Weight (kg.): 77.11 Procedure Procedure Types Cath Procedure Peripheral Cath Diagnostic Procedure Cath Peripheral Abd/Extremity Extremities Left Lower Ext Arterio Procedure Description Procedure Date Procedure Date: 09/10/2017 Procedure Start Time: 10:10 Procedure Staff Name Function Ritchie Mills MD Performing Physician Melo Marcano RT Scrub Barb Ham RN Nurse Janet Christian RT Engineering Lab Technician Janet Christian RT Monitor Procedure Data Cath Procedure Fluoroscopy Diagnostic fluoroscopy Total fluoroscopy Time: time: 22.2 min 22.2 min Diagnostic fluoroscopy Total fluoroscopy dose: 463 dose: 463 mGy mGy Contrast Material Contrast Material Type Amount (ml) Isovue 300 55 Entry Location Entry Primary Successful Side Size Upsize Upsize Entry Closure Succ essful Closure Location (Fr) 1 (Fr) 2 (Fr) Remarks Device Remarks Femoral Right 5 Fr artery Femoral Angio-VIP artery 6Fr Procedure Medications Medication Administration Route Dosage Benadryl I.V. 50 mg Solumedrol I.V. 125 mg Fentanyl I.V. 50 mcg Versed I.V. 1 mg Heparin Bolus I.V. 4000 units Nitroglycerin IC/IA I.A. 250 mcg Fentanyl I.V. 25 mcg Fentanyl I.V. 25 mcg Hemodynamics Rest Heart Rate: 63 (bpm) Snapshots Pre Cath Intra NCS Post Cath Vital Signs Time Heart Resp SPO2 etCO2 NIBP (mmHg) Rhythm Pain Sedation Rate (ipm) (%) (mmHg) Status Level (bpm) 9:49:01 61 21 100 0 144/64(119) NSR 0 (11) 10(A) , No pain 9:53:28 67 26 99 138/68(118) NSR 0 (11) 10(A) , No pain 9:57:52 61 14 99 148/65(109) NSR 0 (11) 10(A) , No pain 10:02:12 60 20 100 148/64(119) NSR 0 (11) 10(A) , No pain 10:07:11 65 15 100 Measuring NSR 0 (11) 10(A) , No pain 10:07:28 60 13 100 152/72(107) NSR 0 (11) 10(A) , No pain 10:11:51 60 18 100 155/68(90) NSR 0 (11) 10(A) , No pain 10:16:18 62 27 100 25.3 171/75(116) NSR 0 (11) 10(A) , No pain 10:20:38 72 17 97 31.3 163/75(127) NSR 0 (11) 10(A) , No pain 10:25:37 60 23 98 2.9 Measuring NSR 0 (11) 10(A) , No pain 10:25:58 60 23 99 8.2 161/66(121) NSR 0 (11) 10(A) , No pain 10:30:22 60 26 100 19.4 148/72(128) NSR 0 (11) 10(A) , No pain 10:34:48 60 13 100 0 154/66(95) NSR 0 (11) 10(A) , No pain 10:39:10 61 10 100 3.7 158/70(119) NSR 0 (11) 10(A) , No pain 10:43:28 62 13 100 0 143/68(107) NSR 0 (11) 10(A) , No pain 10:47:53 61 13 99 8.9 138/66(109) NSR 0 (11) 10(A) , No pain 10:52:15 60 12 100 11.2 151/68(96) NSR 0 (11) 10(A) , No pain 10:57:14 61 20 100 5.9 Measuring NSR 0 (11) 10(A) , No pain 10:57:22 64 20 100 3.7 153/74(128) NSR 0 (11) 10(A) , No pain 11:02:21 61 10 100 11.9 Measuring NSR 0 (11) 10(A) , No pain 11:02:45 60 21 100 11.9 157/73(120) NSR 0 (11) 10(A) , No pain 11:07:10 62 15 100 12.6 160/77(120) NSR 0 (11) 10(A) , No pain 11:11:28 60 13 100 12.6 151/75(123) NSR 0 (11) 10(A) , No pain 11:16:27 68 14 99 11.9 Measuring NSR 0 (11) 10(A) , No pain 11:16:35 60 17 98 7.4 149/71(103) NSR 0 (11) 10(A) , No pain 11:20:55 59 58 100 14.2 152/72(118) NSR 0 (11) 10(A) , No pain 11:25:20 60 33 100 14.9 149/73(115) NSR 0 (11) 10(A) , No pain 11:29:42 61 24 100 0 152/72(122) NSR 0 (11) 10(A) , No pain 11:34:06 59 59 100 16.4 156/64(106) NSR 0 (11) 10(A) , No pain 11:38:30 60 29 100 17.9 150/70(106) NSR 0 (11) 10(A) , No pain 11:42:54 60 37 100 14.9 150/72(127) NSR 0 (11) 10(A) , No pain 11:47:17 59 16 100 16.4 146/69(123) NSR 0 (11) 10(A) , No pain 11:52:15 60 16 100 15.6 Measuring NSR 0 (11) 10(A) , No pain 11:52:26 60 14 100 16.4 145/62(104) NSR 0 (11) 10(A) , No pain 11:57:25 60 23 99 29.1 Measuring NSR 0 (11) 10(A) , No pain 11:57:35 60 25 99 29.1 146/73(120) NSR 0 (11) 10(A) , No pain 12:02:34 62 13 99 31.3 Measuring NSR 0 (11) 10(A) , No pain 12:03:48 60 19 100 30.6 122/60(102) NSR 0 (11) 10(A) , No pain Medications Time Medication Route Dose Verified Delivered Reason Notes Effective ness by by 10:05:55 Benadryl I.V. 50 mg Ritchie Day For Lina Ham RN allergic MD reaction 10:06:07 Solumedrol I.V. 125 Ritchie Barb For mg Lina Ham RN allergic MD reaction 10:13:23 Fentanyl I.V. 50 Ritchie Barb for mcg Lina Ham RN sedation 10:13:38 Versed I.V. 1 mg Ritchie Day for Lina Ham RN sedation 10:29:24 Heparin Bolus I.V. 4000 Ritchie Day units Lina Ham RN, MD 10:40:54 Nitroglycerin I.A. 250 Ritchie Day IC/IA mcg Lina Ham RN, MD 11:10:02 Fentanyl I.V. 25 Ritchie Barb for mcg Lina Ham RN sedation 11:36:32 Fentanyl I.V. 25 Ritchie Barb for mcg Lina Ham RN sedation Procedure Log Time Note 8:53:25 Patient Weight : 170 lbs 8:53:55 Use device set IR Diagnostic 8:54:46 TUBING, CONTRAST INJCTN HI PRES opened to sterile field. 8:54:48 Cook BENTSON 145cm guide wire opened to sterile field. 8:54:49 Terumo 5Fr Corona Sheath opened to sterile field. 8:54:50 Sterile Angiographic Pack opened to sterile field. 8:54:50 Bag Decanter opened to sterile field. 8:54:51 Acist Manifold opened to sterile field. 8:54:52 Acist Hand Control opened to sterile field. 8:54:53 Acist Syringe opened to sterile field. 9:46:45 Time tracking: Regular hours 9:47:07 Plan of Care:Hemodynamics will remain stable., Cardiac rhythm will remain stable., Comfort level will be maintained., Respiratory function will remain adequate., Patient/ family verbilizes understanding of procedure., Procedure tolerated without complication., Recovers from procedure without complications.. 9:47:27 Patient received from Outpatients to IR Alert and oriented. Tansferred to table in Supine position. 9:47:35 Correct patient and procedure confirmed by team. 9:47:37 Signed procedure consent form obtained from patient. 9:47:40 ECG and BP/O2 sat monitors applied to patient. 9:47:41 Vital chart was started 9:47:43 Baseline sample Acquired. 9:47:46 Full Disclosure recording started 9:47:47 - 9:47:58 H&P Date Dictated: 09/10/2017 Within 30 days and on chart.. 9:48:01 Pre-procedure instructions explained to patient. 9:48:01 Pre-op teaching completed and patient verbalized understanding. 9:48:08 Family in waiting room. 9:48:11 Patient NPO since Midnight. 9:48:19 Patient allergic to Iodine 9:48:23 Is the patient allergic to Iodine/contrast media? Yes. 9:48:32 Was the patient premedicated? Yes 9:48:35 Is patient on blood thinner?Yes 9:48:38 Patient diabetic? Yes. 9:48:41 If diabetic: On Metformin? Yes 9:48:48 If on Metformin: Last Dose? 09/09/2017 9:48:51 - :48:55 ----Pre-sedation anethsthesia assessment.---- 9:48:59 Previous problem with sedation/anesthesia? No ? 9:49:02 Snore? No 9:49:05 Sleep apnea? No 9:49:07 Deviated septum? No 9:49:09 Opens mouth fully? Yes 9:49:11 Sticks out tongue? Yes 9:49:28 Airway obstruction? No ? 9:49:35 Dentures? No ? 9:49:42 Pre procedure: right dorsailis pedis pulse 1+ Palpable, but thready & weak; easily obliterated 9:49:50 Pre procedure: left dorsailis pedis pulse 1+ Palpable, but thready & weak; easily obliterated 9:49:55 Pre procedure: right posterior tibial pulse Doppler 9:50:00 Pre procedure: left posterior tibial pulse Doppler 9:50:10 IV patent on arrival in left hand with 0.9% NaCl at KVO. 9:50:22 Right groin area was prepped with chlora-prep and draped in sterile fashion 9:50:24 Alarms reviewed by Hans Sparks 9:50:25 Sharps counted by scrub and verified by RNiharikaNNiharika 9:50:26 - :55 Benadryl 50 mg I.V. was administered by Barb Ham RN; For allergic reaction; 10::07 Solumedrol 125 mg I.V. was administered by Barb Ham RN; For allergic reaction; ::38 Physician arrived 10::37 --------ALL STOP TIME OUT------ ::38 Final Timeout: patient, procedure, and site verified with staff and physician. All members of the team are in agreement. ::55 Right groin site verified by team. 10:10:02 Sedation plan: IV Moderate Sedation Versed, Fentanyl 10:10:52 Procedure started. 10:10:57 Local anesthetic to right femoral artery with Lidocaine 1% by Ritchie Mills MD.INITIAL ACCESS ONLY 10:11:01 Arterial access obtained using ultrasound guidance. 10:13:23 Fentanyl 50 mcg I.V. was administered by Barb Ham RN; for sedation ; 10:13:38 Versed 1 mg I.V. was administered by Barb Ham RN; for sedation; 10:15:36 A 5 Fr sheath was inserted into the Right Femoral artery 10:20:02 Angiography was performed. 10:22:[address] .035 145 glide wire opened to sterile field. 10:25:00 Terumo 5FR ANGLED 65CM glide catheter opened to sterile field. 10:27:32 Terumo 6Fr Corona Destination Sheath opened to sterile field. 10:29:24 Heparin Bolus 4000 units I.V. was administered by Barb Ham RN; ; 10:29:36 [place] Sci Choice PT Extra Support J 300cm .014 gu opened to sterile field. 10:29:50 Cook DE LA FUENTE 260 guide wire opened to sterile field. 10:32:[address] 260 .035 glide wire opened to sterile field. 10:32:14 CXI SUPPORT .035 135 CM STR catheter opened to sterile field. 10:37:00 Turbohawk 1 Large Atherectomy catheter opened to sterile field. 10:37:55 BasixTOUCH Inflation Syringe opened to sterile field. 10:40:54 Nitroglycerin IC/IA 250 mcg I.A. was administered by Barb Ham RN; ; 11:10:02 Fentanyl 25 mcg I.V. was administered by Barb Ham RN; for sedation ; 11:30:15 Micropuncture VSI 4FR kit opened to sterile field. 11:34:13 Terumo 7Fr Corona Destination Sheath opened to sterile field. 11:36:32 Fentanyl 25 mcg I.V. was administered by Barb Ham RN; for sedation ; 11:40:22 Inflation number: 1 A Cordis Powerflex Pro 5.0 X 100 X 135 balloon was prepped and advanced across the Undefined1, then inflated to 15 DUC for 0:20 (min:sec). 11:45:09 Inflation number: 2 The Cordis Powerflex Pro 5.0 X 100 X 135 balloon wa s reinflated across the Undefined1, to 15 DUC for 0:15 (min:sec). 11:49:57 Zilver PTX 6 x 100 stent was deployed across Undefined1 . 11:51:54 A sheath was inserted into the Femoral artery 11:51:54 Sheath removed intact; hemostasis achieved with Angio-VIP 6Fr to the Femoral artery. 11:52:17 ANGIOSEAL-VIP PLUS 6 FR opened to sterile field. 11:55:56 Procedure ended.(Physican Out) 11:56:52 Fluoroscopy time 22.20 minutes. 11:56:58 Fluoroscopy dose: 463 mGy 11:56:58 Flurop Dose total: 463 11:57:03 Sharps counted by scrub and verified by R.N. 11:57:24 Contrast amount:Isovue 300 55ml. 11:57:27 Procedure and supply charges have been captured, reviewed, submitted an d are correct. 12:05:05 Vital chart was stopped Intervention Summary Intervention Notes Time ActionType Lesion and Equipment Action# Pressure Duration Attributes Used 11:40:22 Inflate Undefined1 Cordis 1 15 00:20 balloon Powerflex Pro 5.0 X 100 X 135 balloon 11:45:09 Reinflate Undefined1 Cordis 2 15 00:15 balloon Powerflex Pro 5.0 X 100 X 135 balloon 11:49:57 Deploy self Undefined1 Zilver 1 expanding PTX 6 x stent 100 stent Device Usage Item Name Manufacture Quantity Catalog Number Hospital Part Current Min imal Lot# / Charge Number Stock Stock Serial# Code TUBING, Merit 1 [id number] [id number] [id number] 5 CONTRAST Medical INJCTN HI PRES Cook [facility] 1 [id number] 750916 713516 5 [id number] 145cm guide wire Terumo 5Fr Terumo 1 [id number] 080456 156438 747629 40 Corona Sheath Sterile Cardinal 1 [id number] 366667 496504 5 Angiographic Health Pack Bag Decanter Microtek 1 [id number] 10532 875306 5 Medical Inc. Acist Acist 1 38694 193461 962185 337631 5 Cardiovascular Simulation Systems Pikhub Acist Hand Acist [address]18[address].SG Systems Pikhub Acist Syringe Acist 1 60673 637769 165190 135966 20 Medical Systems Inc Cook Cook Medical 1 O90282 489168 870624 5 [id number] ROADRUNNER .035 145 glide wire Terumo 5FR Terumo 1 CG507 397983 940853 5 ANGLED 65CM glide catheter Terumo 6Fr Terumo 1 RSR01 455638 42780 898654 5 Corona Destination Sheath [place] Sci [place] 1 [id number] 640236 434988 355095 5 Choice PT Scientific Extra Support J 300cm .014 gu Cook DE LA FUENTE [facility] 1 M96347 699813 814376 [id number] [facility] 1 H95449 927766 397409 515325 5 [id number]ADRUNNER 260 .035 glide wire CXI SUPPORT [facility] 1 F35606 019426 218613 5 5409314 .035 135 CM STR catheter Turbohawk 1 Ev3 1 H1-M 080128 836451 024253 5 Large Atherectomy [facility] 1 GL4737 412514 357425 849285 5 Inflation Medical Syringe Micropuncture VSI VASCULAR 1 7266V 552505 926825 5 VSI 4FR kit SOLUTIONS Terumo 7Fr Terumo 1 RSR04 190735 521256 193521 5 Corona Destination Sheath Cordis Cardinal 1 [id number] 643571 592531 229064 5 Powerflex Pro Health 5.0 X 100 X 135 balloon Zilver PTX 6 [facility] 1 S52313 316036 806866 370919 5 [id number] x [address]-V[address] Abe 1 526166 657615 281075 5 [id number] PLUS 6 FR Signature Audit [place] Stage Time Signature Unsigned Intra-Procedure 09/10/2017 Janet Christian 12:05:02 PM RT(R) Signatures Monitor : Janet Christian RT Signature : Date : Time : [facility] [address] [id number]
[2017-09-10 08:19] VITALS: BP 142/61; BMI 25.9
[2017-09-10 08:28] LABS: BASOPHILS 0.2 % (0-2); EOSINOPHILS 0.5 % (0-7); HEMATOCRIT 43.3 % (42.0-54.0); IMMATURE GRANULOCYTES 0.6 % (0-5); LYMPHOCYTES 21.4 % (15-50); MCH 28.7 pg (26.0-34.0); MCHC 32.3 g/dL (31.0-37.0); MCV 88.9 fL (80.0-100.0); MEAN PLATELET VOLUME 11.3 fL (7.4-10.4); MONOCYTES 12.5 % (2-11); NEUTROPHILS 64.8 % (40-80); PLATELET COUNT 260 10x3/uL (130-400); RBC 4.87 10x6/uL (4.20-6.10); RDW 15.8 % (11.5-14.5); WBC 9.4 10x3/uL (4.8-10.8)
[2017-09-10 08:38] LABS: ANION GAP 13.1 mmol/L (8-16); APTT 32.4 SECONDS (22.8-39.4); CALCIUM 8.8 mg/dL (8.5-10.1); CARBON DIOXIDE 34.7 mmol/L (21.0-32.0); CREATININE - SERUM 1.5 mg/dL (0.6-1.3); INR 1.17 (0.85-1.17); POTASSIUM - SERUM 3.8 mmol/L (3.5-5.1); PROTIME 14.8 SECONDS (11.6-15.0)
--- NOTE | 2017-09-10 13:24 | NUR ---
PT RESTING EASILY. TOLERATED DIET. LEMON MARY'S IGLOO COLA PROVIDED, ALONG WITH WARM BLANKET.
--- NOTE | 2017-09-10 13:26 | NUR ---
VSS STABLE. SEE FREQUENT VS SHEET.
--- NOTE | 2017-09-10 15:26 | NUR ---
PT RESTING EASILY.
--- NOTE | 2017-09-10 15:33 | NUR ---
PT VOIDED USING URINAL.
--- NOTE | 2017-09-10 16:17 | NUR ---
VSS STABLE. SEE FREQUENT VITAL SIGN SHEET. DRESSING TO RIGHT GROIN REMAINS C/D/I. R PEDAL PULSE 2+.
--- NOTE | 2017-09-10 16:43 | NUR ---
PT CONTINUES TO REST EASILY.
--- NOTE | 2017-09-10 17:21 | NUR ---
PT AND ADVISED WILL GO TO ROOM 3444. DIET ORDERED.
--- NOTE | 2017-09-10 17:24 | NUR ---
REPORT CALLED TO FER ON MED 2.
--- NOTE | 2017-09-10 17:30 | NUR ---
PT TRANSFERRED TO ROOM 2127 VIA STRETCHER.
--- NOTE | 2017-09-10 17:44 | NUR ---
PT TO ROOM ALERT AND ORIENTED DENIES NEEDS VS ARE WNL R GROIN SITE WNL WILL ADMIT
[2017-09-10 17:47] VITALS: BP 140/64; BMI 25.9
--- NOTE | 2017-09-10 17:57 | NUR ---
GOT IN REPORT THAT PT HAD HIS ORDERED MEDS IN OP. MARKED ON EMAR
--- NOTE | 2017-09-10 18:39 | NUR ---
PT SITTING UP IN BED, PT BEDREST HAS BEEN COMPLETED. R GROIN DSNG IS CDI NO S/S BLEEDING. PT AT BEDSIDE BOTH DENY ANY NEEDS
[2017-09-10 20:30] VITALS: BP 143/60
[2017-09-11 01:44] VITALS: BP 119/60
[2017-09-11 04:40] VITALS: BP 140/59
[2017-09-11 07:13] VITALS: BP 147/68
--- NOTE | 2017-09-11 08:26 | NUR ---
SLEEPING AT PRESENT. MONITOR SHOWS NSR @ 75.
[2017-09-11 08:28] LABS: BASOPHILS 0.1 % (0-2); EOSINOPHILS 0 % (0-7); HEMATOCRIT 40.3 % (42.0-54.0); HEMOGLOBIN 13.2 g/dL (13.5-17.5); IMMATURE GRANULOCYTES 0.5 % (0-5); LYMPHOCYTES 11.9 % (15-50); MCH 28.9 pg (26.0-34.0); MCHC 32.8 g/dL (31.0-37.0); MCV 88.2 fL (80.0-100.0); MEAN PLATELET VOLUME 11.3 fL (7.4-10.4); NEUTROPHILS 76.5 % (40-80); PLATELET COUNT 254 10x3/uL (130-400); RBC 4.57 10x6/uL (4.20-6.10); RDW 15.5 % (11.5-14.5)
[2017-09-11 08:52] LABS: WBC 16.5 10x3/uL (4.8-10.8)
[2017-09-11 08:56] LABS: ANION GAP 16.2 mmol/L (8-16); CALCIUM 8.8 mg/dL (8.5-10.1); CARBON DIOXIDE 30.4 mmol/L (21.0-32.0); CREATININE - SERUM 1.3 mg/dL (0.6-1.3); POTASSIUM - SERUM 3.6 mmol/L (3.5-5.1)
--- NOTE | 2017-09-11 10:21 | NUR ---
DISCHARGE ORDER RECIEVED. PT REFUSES FLU VACCINE. SITE CLEAR OF BLEEDING AND EDEMA.
--- NOTE | 2017-09-11 10:48 | NUR ---
DISCHARGE INSTRUCTIONS GIVEN TO BOTH PATIENT AND . BOTH UNDERSTAND. WRITTEN INSTRUCTIONS ALSO GIVEN. TO CAR VIA .
== END 2017-09-11 10:51 | disposition home or self-care (01) ==
LOC: D.OPS 07:30 → D.RAD 13:00 → D.M2 17:43 → D.OPS 09-11 10:51
PROVIDERS: Radiology Diagnostic Radiology
DX: I70.242 Atherosclerosis of native arteries of left leg with ulceration of calf (principal); Z79.84 Long term (current) use of oral hypoglycemic drugs; Z79.01 Long term (current) use of anticoagulants; Z79.891 Long term (current) use of opiate analgesic; Z79.82 Long term (current) use of aspirin; Z79.02 Long term (current) use of antithrombotics/antiplatelets; Z79.899 Other long term (current) drug therapy; Z88.0 Allergy status to penicillin; Z88.1 Allergy status to other antibiotic agents; Z91.041 Radiographic dye allergy status; L97.929 Non-pressure chronic ulcer of unspecified part of left lower leg with unspecified severity; E11.9 Type 2 diabetes mellitus without complications; M79.662 Pain in left lower leg

== ENCOUNTER → 2018-01-17 13:14 | Outpatient (CLI) | payer MEDICARE, OTHER | END | disposition home or self-care (01) | LOC: D.RAD 13:14 | DX: M54.5 Low back pain (principal) ==